=== PATIENT | female | born 1985 | race Caucasian/White ===

== ENCOUNTER 2021-08-06 13:15 | Emergency (ER) | payer MEDICARE, SELFPAY ==
[2021-08-06 13:15] VITALS: BP 130/95; PULSE 102; RESP 16; TEMP 36.8; O2SAT 96
--- NOTE | 2021-08-06 13:36 | ED.DENTAL ---
HPI - Dental/Oral General Chief complaint: Dental/Oral Stated complaint: jaw pain left side Source: patient and RN notes reviewed Mode of arrival: ambulatory Limitations: no limitations History of Present Illness HPI Narrative: Jaw pain, patient wears dentures on the lowers. Been having lower left jaw pain. Onset (ago): day(s) (3) Duration: constant Severity: moderate Relieving factors: nothing Exacerbating factors: chewing Associated symptoms: gum swelling Treatment prior to arrival: none Related Data Home Medications Medication Instructions Recorded Confirmed Motrin 200 mg PO PRN 08/06/21 08/06/21 Singulair 10 mg PO DAILY 08/06/21 08/06/21 Zanaflex 4 mg PO DAILY 08/06/21 08/06/21 oxybutynin chloride 1 tablet PO DAILY 08/06/21 08/06/21 Allergies Allergy/AdvReac Type Severity Reaction Status Date / Time No Known Allergies Allergy Verified 08/06/21 13:36 Review of Systems Review of Systems: All systems reviewed & are unremarkable except as noted in HPI and below Constitutional: Constitutional: Denies chills and Denies fever(s) PMFSH Past Medical History Medical History (Updated 08/06/21 @ 13:37 by Willard Bolaños MD) Anxiety Overactive bladder Social History Social History (Updated 08/06/21 @ 13:36 by Willard Bolaños MD) Smoking packs per day: 1.5 Smoking cigarettes per day: 30.0 Smoking status: Current every day smoker Tobacco type: cigarettes Exam Const: General: no acute distress and alert Nutritional Appearance: well nourished Orientation/consciousness: patient oriented x3 Other: Female nurse in room during examination HENMT: Head: normal to inspection Ears: external ears normal General nose exam: Normal external nose present Face and sinus: edema on the left mandible, fluctuance ( I was able to push on the abscess and expressed a small amount of purulent) and Facial tenderness on exam of face and sinuses on the left mandible Teeth and gingiva: edentulous and gingiva abnormal with purulent discharge (left middle buccal side) Eyes: Conjunctivae: conjunctivae normal Pupils: Equal, round and reactive pupils present EOM: EOMs intact bilaterally Neck: Neck: normal visual inspection and no lymphadenopathy Resp: Effort & Inspection: normal respiratory effort Auscultation: clear to auscultation bilaterally Cardio: Rate: regular rate Rhythm: regular rhythm GI: GI Palp: Yes Soft to palpation and No Tenderness to palpation present (GI) Auscultation: normal bowel sounds Back/Spine/Pelvis: Cervical Spine: cervical ROM normal Thoracic/Lumbar Spine: thoraco-lumbar ROM normal Skin: General skin exam: normal color Rashes: no rashes Neuro: General: patient oriented x3, moves all extremities, no meningeal signs, no focal motor deficits and CN's II-XI intact bilaterally Speech: normal speech Gait exam (Neuro): Normal gait present Extrem: General: normal to inspection and no clubbing, cyanosis or edema Psych: Appearance: grossly normal and well kempt Mental Status: mental status grossly normal Affect: normal affect Attitude: cooperative Thought content: Yes Normal thought content present Course Vital Signs Vital signs: Vital Signs Temperature 36.8 C 08/06/21 13:15 Pulse Rate 102 H 08/06/21 13:15 Respiratory Rate 16 08/06/21 13:15 Blood Pressure 130/95 H 08/06/21 13:15 Pulse Oximetry 96 08/06/21 13:15 Temperature 36.8 C 08/06/21 13:15 Pulse Rate 102 H 08/06/21 13:15 Respiratory Rate 16 08/06/21 13:15 Blood Pressure 130/95 H 08/06/21 13:15 Pulse Oximetry 96 08/06/21 13:15 Discharge Plan Discharge Clinical Impression: Dental abscess Patient Disposition: Home, Self-Care Condition: Stable Instructions: Dental Abscess (ED) Additional Instructions: try to massage left jaw to keep the drainage coming out. can also do salt water swish and spit. Prescriptions: New nabumetone 750 mg tablet 750 mg PO BID Qty: 14 RF: 0
--- NOTE | 2021-08-06 13:40 | PC.NURSE ---
RN in room when ERP when he evaluated and assessed RN. RN and ERP assessed pts abscess and were able to pop it without difficutly.
== END 2021-08-06 13:50 | disposition home or self-care (01) ==
PROVIDERS: Emergency Provider Emergency Medicine
DX: K04.7 Periapical abscess without sinus (principal)
CPT/HCPCS: 99283